=== PATIENT | male | born 1945 | race Caucasian/White ===

== ENCOUNTER 2018-04-23 07:42 | Emergency (ER) | payer OTHER ==
[~2018-04-23] VITALS: Ht 180.3 cm; Wt 96.6 kg
[~2018-04-23 07:42] MED LIST: AMLODIPINE BESYL5 MG PO; ASPIRIN CHEW81 MG PO; BACTRIM DS TAB1 EACH PO; FLOMAX0.4 MG PO; LOPRESSOR25 MG PO; NITROGLYCERIN; NORCO 10-325 T1 EACH PO; PROSCAR5 MG PO; PYRIDIUM100 MG PO; Z.0.ASPIR 8181 MG PO; Z.0.PLAVIX75 MG PO; ZESTRIL2.5 MG PO; ZOCOR20 MG PO
--- NOTE | 2018-04-23 07:45 | NUR ---
SLIT LAMP/SHAH LAMP/FLURO STRIP/SALINE FLUSH/ 4X4'S/TAPE AND TETRACAINE ALL AT BEDSIDE FOR MD.
--- OUTSIDE RECORDS SUMMARY | 2018-04-23 07:45 | XMS REPORT | Summary of Care ---
Author Author Nicolasa Samaniego M.A. Organization Unknown Address [facility] Phone Unavailable Care Team Providers Care Bar Back Name Role Phone Nicolasa Samaniego M.A. 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 Renal calculi (592.0, N20.0) Status: Active Nausea (787.02, R11.0) Status: Active Cramps of lower extremity (729.82, R25.2) Status: Active Chest pressure (786.59, R07.89) Status: Active Fatigue (780.79, R53.83) Status: Active Tachycardia (785.0, R00.0) Status: Active Chest pain (786.50, R07.9) Status: Active Palpitation (785.1, R00.2) Status: Active Influenza vaccine needed (V04.81, Z23) Status: Active Encounter for administrative examination (V68.9, Z02.9) Status: Active Enlarged prostate without lower urinary tract symptoms (luts) (600.00, N40.0) Status: Active Lumbar herniated disc (722.10, M51.26) Status: Active Counseling regarding advanced directives (V65.49, Z71.89) Status: Active Elbow pain, chronic, left (719.42, M25.522) Status: Active Cardiomyopathy (425.4, I42.9) Status: Active Noncompliance with treatment (V15.81, Z91.19) Status: Active Pain in left knee (719.46, M25.562) Status: Active Arteriosclerosis of coronary artery (414.00, I25.10) Status: Active Myocardial infarction (410.90, I21.9) Status: Active Hyperlipidemia (272.4, E78.5) Status: Active History of gross hematuria (V13.09, Z87.448) Status: Active Acute upper respiratory infection (465.9, J06.9) Status: Active CAD (coronary artery disease) (414.00, I25.10) Status: Active Essential (primary) hypertension (401.9, I10) Status: Active Medications Name Dates Details Ibuprofen CAPS PRN Active Aspirin 81 MG TABS TAKE 1 TABLET DAILY. * Refills: 0 Active Promethazine VC Plain 6.25-5 MG/5ML Oral Solution TAKE 5 ML EVERY 4 TO 6 HOURS NEEDED. * Quantity: 118 Refills: 2 YEH D.O.AMY * Start : 28-Jun-2017 Active Fluticasone Propionate 50 MCG/ACT Nasal Suspension USE 2 SPRAYS IN EACH NOSTRIL ONCE DAILY * Quantity: 1 Refills: 1 YEH D.OAMY Roth * Start : 28-Jun-2017 Active 16 GM Bottle Allergies and Adverse Reactions Name Dates Details Dilaudid TABS (Allergy) Reaction: Itching Status: Active Past Medical History Name Dates Details History of backache (V13.59, Z87.39) Status: Resolved History of Cavernoma (757.32, D18.01) Status: Resolved History of Colon Cancer (V10.05) Status: Resolved History of Nephrolithiasis (V13.01) Status: Resolved History of renal calculi (V13.01, Z87.442) Status: Resolved Procedures Procedure Dates Details History of Prostate Surgery Completed History of Colon Surgery Completed Immunization Name Dates Details Tdap on: 07-Aug-2010 Pneumo on: 07-Aug-2010 Fluzone INJ Lot #: [id number] on: 28-Feb-2015 Family History Name Dates Details Family history of essential hypertension (V17.49, Z82.49) Status: Active Social History Name Dates Details - Status: Name Dates Details Never smoker Vital Signs Date Test Result Details [id number] BP Systolic 142 mm[Hg] Status: Comments: Location: LUE; Position: Sitting BP Diastolic 81 mm[Hg] Status: Comments: Location: LUE; Position: Sitting Height 71 in Status: Weight 209 lb Status: Body Mass Index Calculated 29.15 kg/m2 Status: Body Surface Area Calculated 2.15 m2 Status: Temperature 97.7 f Status: Comments: Method: Temporal Respiration Rate 16 /min Status: Heart Rate 79 /min Status: Results Date Description Value Details Results not documented Plan of Care Name Dates Details Planned Observations Planned Goals not documented Planned Encounters Appointment; COLEMAN GAYLE M.D. On: 06-May-2018 9:00 Instructions Name Dates Details Instructions not documented Encounters Appointment; COLEMAN GAYLE M.D. Encounter Diagnosis: Problem not documented On: 16-Jul-2015 9:00 Appointment; COLEMAN GAYLE M.D. Encounter Diagnosis: Problem not documented On: 17-Jul-2015 12:40 Appointment; KEVIN PHAM NP Encounter Diagnosis: Problem not documented On: 11-Feb-2016 12:45 Appointment; COLEMAN GAYLE M.D. Encounter Diagnosis: Problem not documented On: 15-Jul-2016 12:20 Appointment; KEVIN PHAM NP Encounter Diagnosis: Problem not documented On: 31-Dec-2016 8:30 Appointment; [facility] Encounter Diagnosis: Problem not documented On: 07-Apr-2017 11:00 Appointment; [facility]ACKELINEMS, ECHO Encounter Diagnosis: Problem not documented On: 07-May-2017 8:00 Appointment; COLEMAN GAYLE M.D. Encounter Diagnosis: Problem not documented On: 07-May-2017 11:40 Appointment; AMY SALGUERO D.O. Encounter Diagnosis: Problem not documented On: 28-Jun-2017 13:15
[2018-04-23] MEDS ORDERED: ERYTHROMYCIN (OPTH) 3.5 GM OINT OP ONE (09:00)
[2018-04-23] MEDS ORDERED: TETRACAINE HCL 0.5% OPTH SOLN 4 ML BTL OP ONE (09:00)
[2018-04-23] MEDS ORDERED: CYCLOPENTOLATE HCL 1% OPTH SOLN 2ML BTL OP ONE (09:00)
[2018-04-23] MEDS ORDERED: FLUORESCEIN SOD(OPTH) 1 MG STRP OP ONE (09:00)
== END 2018-04-23 08:25 | disposition home or self-care (01) ==
LOC: FSED 07:42
DX: T15.01XA Foreign body in cornea, right eye, initial encounter (principal); H16.041 Marginal corneal ulcer, right eye
CPT/HCPCS: 99284

== ENCOUNTER 2018-12-16 16:27 | Emergency (ER) | payer MEDICARE, OTHER ==
[~2018-12-16] VITALS: Ht 180.3 cm; Wt 96.6 kg
--- OUTSIDE RECORDS SUMMARY | 2018-12-16 16:32 | XMS REPORT | Continuity of Care Document ---
Author Author [employer] Organization [employer] Address Unknown Phone Unavailable Care Team Providers Care Cook Mayonnaise Name Role Phone [facility] Yoyo Information Daily[employer] Unavailable Unavailable Problems Problem Status Onset Date Classification Date Reported Comments Source Chest pain Active 09/25/2014 Problem 04/23/2018 [facility] Medications Medication Details Route Status Patient Instructions Ordering Provider Order Date Source Finasteride (Proscar) 5 Mg Tablet, Mg Oral Daily Active 07/02/2013 [facility] Hydrocodone Bit/Acetaminophen ([place] 10-325 Tablet) 1 Each Tablet, 10 - 325 Mg Oral Every 4 Hours as needed Active 07/02/2013 [facility] Sulfamethoxazole/Trimethoprim (Bactrim Ds Tablet) 1 Each Tablet, Mg Oral Twice A Day Active 07/02/2013 [facility] Tamsulosin Hcl (Flomax*) 0.4 Mg Cap, 0.4 Mg Oral Twice A Day Active 07/02/2013 [facility] Aspirin (Aspir 81) 81 Mg Tablet.dr, 81 Mg Oral Daily Active 06/10/2012 [facility] Clopidogrel Bisulfate (Plavix) 75 Mg Tablet, 75 Mg Oral Daily Active 06/10/2012 [facility] Amlodipine Besylate 5 Mg Tablet Daily Active [facility] Aspirin (Aspirin Chew) 81 Mg Chew Daily Active [facility] Lisinopril (Zestril*) 2.5 Mg Tablet Daily Active [facility] Metoprolol Tartrate (Lopressor) 25 Mg Tab Twice A Day Active [facility] Phenazopyridine Hcl (Pyridium) 100 Mg Tablet Every 6 Hours as needed for Bladder Spasms Active [facility] Simvastatin (Zocor) 20 Mg Tablet Bedtime Active [facility] Allergies, Adverse Reactions, Alerts Substance Category Reaction Severity Reaction type Status Date Reported Comments Source Meperidine ITCHING Intermediate Allergy to Substance Active 09/25/2014 [facility] Immunizations No Data Provided for This Section Results No Data Provided for This Section Pathology Reports No Data Provided for This Section Diagnostic Reports No Data Provided for This Section Consultation Notes No Data Provided for This Section Discharge Summaries No Data Provided for This Section History and Physicals No Data Provided for This Section Vital Signs No Data Provided for This Section Encounters Location Location Details Encounter Type Encounter Number Reason For Visit Attending Provider ADM Date DC Date Status Source Departed Emergency Room [id number] FEROZ JULIEN MD 04/23/2018 04/23/2018 [facility] Procedures No Data Provided for This Section Assessment and Plan No Data Provided for This Section Plan of Care Plan of Care Date Source Discharge Date 04/23/18 8:25am Disposition HOME, SELF-CARE Condition at Discharge Stable Instructions/Education Provided Corneal Abrasion Prescriptions See Medication Section Referrals ARASH ROBERTS MD Address: [address] [place] [id number] [facility] Order Date: Call for an appointment 04/23/2018 [facility] Social History Social History Date Source Social History Problem Response Recorded Date/Time Onset Date Status Hx Psychiatric Problems No 09/26/2014 1:30am Not Applicable Not Applicable Hx Eating Disorder No 09/26/2014 1:30am Not Applicable Not Applicable Hx Substance Use Disorder No 09/26/2014 1:30am Not Applicable Not Applicable Hx Depression No 09/26/2014 1:30am Not Applicable Not Applicable Hx Alcohol Use No 09/26/2014 1:30am Not Applicable Not Applicable Hx Substance Use Treatment No 09/26/2014 1:30am Not Applicable Not Applicable Hx Physical Abuse No 09/26/2014 1:30am Not Applicable Not Applicable 04/23/2018 [facility] Family History No Data Provided for This Section Advance Directives Order Name Results Value Date Source Advance Directives Advance Directives Directive Response Recorded Date/Time Does the patient have an advance directive? Yes 09/26/14 1:30am If yes, is advance directive on file with [facility]? No 09/26/14 1:30am If not on file with [facility] will patient provide a copy? Yes 09/26/14 1:30am 04/23/2018 [facility] Functional Status No Data Provided for This Section
--- OUTSIDE RECORDS SUMMARY | 2018-12-16 16:32 | XMS REPORT | Summary of Care ---
Author Author Jun Giraldo R.N. Organization Unknown Address [facility] Phone Unavailable Care Team Providers Care Pattern Drafter Name Role Phone Jun Giraldo R.N. Unavailable Unavailable YEPradeep D.OIra, ELO-JOHNNY Unavailable Unavailable YEH DO [facility], ELO-JOHNNY Unavailable Unavailable ARMANDO Johnson, ARASH Unavailable Unavailable Irwin CHUA, Jac Unavailable Unavailable Unavailable Unavailable Functional Status Name [...] Active Chest pain (786.50, R07.9) Status: Active Influenza vaccine needed (V04.81, Z23) Status: Active Encounter for administrative examination (V68.9, Z02.9) Status: Active Lumbar herniated disc (722.10, M51.26) Status: Active Elbow pain, chronic, left (719.42, M25.522) Status: Active Cardiomyopathy (425.4, I42.9) Status: Active Noncompliance with treatment (V15.81, Z91.19) Status: Active Pain in left knee (719.46, M25.562) Status: Active Myocardial infarction (410.90, I21.9) Status: Active History of gross hematuria (V13.09, Z87.448) Status: Active Acute upper respiratory infection (465.9, J06.9) Status: Active Counseling regarding advanced directives (V65.49, Z71.89) Status: Active Arteriosclerosis of coronary artery (414.00, I25.10) Status: Active Palpitation (785.1, R00.2) Status: Active Hyperlipidemia (272.4, E78.5) Status: Active CAD (coronary artery disease) (414.00, I25.10) Status: Active Enlarged prostate without lower urinary tract symptoms (luts) (600.00, N40.0) Status: Active Essential (primary) hypertension (401.9, I10) Status: Active Colon cancer screening (V76.51, Z12.11) Status: Active Skin lesion of face (709.9, L98.9) Status: Active Medications Name Dates Details Simvastatin 20 MG Oral Tablet TAKE 1 TABLET BY MOUTH AT BEDTIME Quantity: 30 YEH D.O., ELO-JOHNNY * Start : 28-Sep-2014 Active Allergies and Adverse Reactions Name Dates Details Dilaudid TABS (Allergy) Reaction: Itching Status: Active Past Medical History Name Dates Details History of backache (V13.59, Z87.39) Status: Resolved History of Cavernoma (228.00, D18.00) Status: Resolved History of Colon Cancer (V10.05) Status: Resolved History of Nephrolithiasis (V13.01) Status: Resolved History of renal calculi (V13.01, Z87.442) Status: Resolved Procedures Procedure Dates Details History of Prostate Surgery Completed History of Colon Surgery Completed Immunization Name Dates Details Tdap on: 07-Aug-2010 Pneumo on: 07-Aug-2010 Fluzone INJ Lot #: [id number] on: 28-Feb-2015 Family History Name Dates Details Family history of essential hypertension (V17.49, Z82.49) Status: Active Social History Name Dates Details - Status: Name Dates Details Never smoker Vital Signs Date Test Result Details [id number] Physical Findings 1 Status: Comments: PHQ-9 Adult Depression Screening Results Date Description Value Details 05-Oct-20189:29 [QH] LIPID PANEL WITH REFLEX TO DIRECT LDL CHOLESTEROL, TOTAL 202 mg/dl (Above high threshold) Range: <200 HDL CHOLESTEROL 39 mg/dl (Below low threshold) Range: >40 TRIGLYCERIDES 132 mg/dl (Normal) Range: <150 LDL-CHOLESTEROL 137 {MG/DL__CAL} (Above high threshold) Comments: Reference range: <100 Desirable range <100 mg/dL for primary prevention; <70 mg/dL for patients with CHD or diabetic patients with > or=2 CHD risk factors. LDL-C is now calculated using the El calculation, which is a validated novel method providing better accuracy than the Friedewald equation in the estimation of LDL-C. Jaquan RESTREPO et al. LEANNE. 2013;310(19): 3268-8442 (http:/ /education.Artsy/faq/TWT579) CHOL/HDLC RATIO 5.2 {CALC} (Above high threshold) Range: <5.0 NON HDL CHOLESTEROL 163 {MG/DL__CAL} (Above high threshold) Range: <130 Comments: For patients with diabetes plus 1 major ASCVD risk factor, treating to a non-HDL-C goal of <100 mg/dL (LDL-C of <70 mg/dL) is considered a therapeutic option. 05-Oct-20189:29 [[facility]] CMP W/EGFR GLUCOSE 102 mg/dl (Above high threshold) Range: 65-99 Comments: Fasting reference interval For someone without known diabetes, a glucose valuebetween 100 and 125 mg/dL is consistent withprediabetes and should be confirmed with afollow-up test. UREA NITROGEN (BUN) 16 mg/dl (Normal) Range: 7-25 CREATININE 1.23 mg/dl (Above high threshold) Range: 0.70-1.18 Comments: For patients >49 years of age, the reference limitfor Creatinine is approximately 13% higher for peopleidentified as -Mexican. eGFR NON- 57 {ML/MIN/1.7} (Below low threshold) Range: > OR=60 eGFR 67 {ML/MIN/1.7} (Normal) Range: > OR=60 BUN/CREATININE RATIO 13 {CALC} (Normal) Range: 6-22 SODIUM 141 mmol/L (Normal) Range: 135-146 POTASSIUM 4.8 mmol/L (Normal) Range: 3.5-5.3 CHLORIDE 108 mmol/L (Normal) Range: 98-110 CARBON DIOXIDE 27 mmol/L (Normal) Range: 20-32 CALCIUM 9.1 mg/dl (Normal) Range: 8.6-10.3 PROTEIN, TOTAL 6.1 g/dl (Normal) Range: 6.1-8.1 ALBUMIN 4.0 g/dl (Normal) Range: 3.6-5.1 GLOBULIN 2.1 {G/DL__CALC} (Normal) Range: 1.9-3.7 ALBUMIN/GLOBULIN RATIO 1.9 {CALC} (Normal) Range: 1.0-2.5 BILIRUBIN, TOTAL 0.4 mg/dl (Normal) Range: 0.2-1.2 ALKALINE PHSPHATASE 55 u/l (Normal) Range: 40-115 AST 17 u/l (Normal) Range: 10-35 ALT 14 u/l (Normal) Range: 9-46 :29 [QL] CBC (INCLUDES DIFF/PLT) WHITE BLOOD CELL COUNT 5.0 {Thousand/u} (Normal) Range: 3.8-10.8 RED BLOOD CELL COUNT 4.93 {Million/uL} (Normal) Range: 4.20-5.80 HEMAGLOBIN 14.9 g/dl (Normal) Range: 13.2-17.1 HEMATOCRIT 44.2 % (Normal) Range: 38.5-50.0 MCV 89.7 fL (Normal) Range: 80.0-100.0 MCH 30.2 pg (Normal) Range: 27.0-33.0 MCHC 33.7 g/dl (Normal) Range: 32.0-36.0 RDW 14.9 % (Normal) Range: 11.0-15.0 PLATELET COUNT 260 {Thousand/u} (Normal) Range: 140-400 MPV 10.3 fL (Normal) Range: 7.5-12.5 ABSOLUTE NEUTROPHILS 3200 {cells/uL} (Normal) Range: 0577-7093 ABSOLUTE LYMPHOCYTES 1145 {cells/uL} (Normal) Range: 850-3900 ABSOLUTE MONOCYTES 415 {cells/uL} (Normal) Range: 200-950 ABSOLUTE EOSINOPHILS 170 {cells/uL} (Normal) Range: 15-500 ABSOLUTE BASOPHILS 70 {cells/uL} (Normal) Range: 0-200 NEUTROPHILS 64 % (Normal) LYMPHOCYTES 22.9 % (Normal) MONOCYTES 8.3 % (Normal) EOSINOPHILS 3.4 % (Normal) BASOPHILS 1.4 % (Normal) :29 [QL] TSH, 3RD GENERATION W/REFLEX TO FT4 TSH, 3RD GENERATION W/REFLEX TO FT4 4.15 {MIU/L} (Normal) Range: 0.40-4.50 05-Oct-20189:29 [QL[facility]] PSA (FREE AND TOTAL) Comments: REPORT COMMENT:FASTING:YESCOLLECTION KIT GIVEN TO PATIENT. PATIENT ADVISED TO RETURN. TOTAL PSA 3.3 ng/ml (Normal) Range: < OR=4.0 FREE PSA 0.6 ng/ml (Normal) % FREE PSA 18 {%__CALC} (Below low threshold) Range: >25 Comments: PSA(ng/mL) Free PSA(%) Estimated(x) Probability of Cancer(as%)0-2.5 (*) Approx. 12.6-4.0(1) 0-27(2) 24(3)4.1-10(4) 0- 10 56 11-15 28 16-20 20 21-25 16 >or=26 8>10(+) N/A >50 References:(1)Nick et al.:Urology 60: 469-474 (2001) (2)Nick et al.:J.Urol 168: 922-925 (2001) Free PSA(%) Sensitivity(%) Specificity(%) < or=25 85 19 < or=30 93 9 (3)Catalona et al.:LEANNE 277: 9666-6232 (1996) (4)Catalona et al.:LEANNE 279: 0989-8532 (1997) (x)These estimates vary with age, ethnicity, family history and FAHEEM results.(*)The diagnostic usefulness of % Free PSA has not been established in patients with total PSA below 2.6 ng/mL(+)In men with PSA above 10 ng/mL, prostate cancer risk is determined by total PSA alone. The Total PSA value from this assay system is standardized against the equimolar PSA standard. The test result will be approximately 20% higher when compared to the WHO- standardized Total PSA (Siemens assay). Comparison of serial PSA results should be interpreted with this fact in mind. PSA was performed using the Roger CoulterImmunoassay method. Values obtained from differentassay methods cannot be used interchangeably. PSAlevels, regardless of value, should not be interpretedas absolute evidence of the presence or absence ofdisease. [id number]-[id number]:00 [Q] FECAL GLOBIN BY IMMUNOCHEMISTRY FECAL GLOBIN BY IMMUNOCHEMISTRY Comments: FECAL GLOBIN BY IMMUNOCHEMISTRY MICRO NUMBER: [id number] TEST STATUS: FINAL SPECIMEN SOURCE: INSURE () FOBT TEST CARD SPECIMEN QUALITY: ADEQUATE RESULT: Not DetectedNO COLLECTION DATE RECEIVED. WE HAVE USEDTHE DATE THE SPECIMEN [facility] COLLECTION [facility]. IF THISIS INCORRECT, PLEASE CONTACT CLIENT SERVICES.PHONE NUMBER: [phone] Plan of Care Name Dates Details Planned Observations Planned Goals not documented Planned Encounters Appointment; AMY SALGUERO D.O. On: 30-Dec-2018 10:30 Appointment; JAC DAVIS M.D. On: 09-May-2019 14:00 Interventions Provided Discussion/Summary* Guideline Used: * Other: Returning a missed call * [place] * Patient returning a missed call from [facility]. Warm transfer call to [facility]. * No new signs or symptoms from patient at this time. * Recommended Disposition: Call back with any further questions or concerns. * Intended Caller Action: * Other: Returning a missed call * Additional Information: * Patient verbalizes understanding of the call and agrees to disposition at this time. Instructions Name Dates Details Instructions not documented Encounters Appointment; KEVIN PHAM NP Encounter Diagnosis: Problem not documented On: 31-Dec-2016 8:30 Appointment; [facility], ECHO Encounter Diagnosis: Problem not documented On: 07-Apr-2017 11:00 Appointment; [facility], ECHO Encounter Diagnosis: Problem not documented On: 07-May-2017 8:00 Appointment; JAC DAVIS M.D. Encounter Diagnosis: Problem not documented On: 07-May-2017 11:40 Appointment; AMY SALGUERO D.O. Encounter Diagnosis: Problem not documented On: 28-Jun-2017 13:15 Appointment; JAC DAVIS M.D. Encounter Diagnosis: Problem not documented On: 06-May-2018 9:00 Appointment; JAC DAVIS M.D. Encounter Diagnosis: Problem not documented On: 10-May-2018 13:20 Appointment; AMY SALGUERO D.O. Encounter Diagnosis: Problem not documented On: 07-Sep-2018 14:30
[2018-12-16] MEDS ORDERED: TETRACAINE HCL 0.5% OPTH SOLN 4 ML BTL OP ONE (17:30)
[2018-12-16] MEDS ORDERED: FLUORESCEIN SOD(OPTH) 1 MG STRP OP ONE (17:30)
== END 2018-12-16 17:00 | disposition home or self-care (01) ==
LOC: FSED 16:27
DX: H57.12 Ocular pain, left eye (principal); H16.002 Unspecified corneal ulcer, left eye
CPT/HCPCS: 99284

== ENCOUNTER 2019-01-23 18:21 | Emergency (ER) | payer MEDICARE ==
[~2019-01-23] VITALS: Ht 180.3 cm; Wt 95.3 kg
--- OUTSIDE RECORDS SUMMARY | 2019-01-23 18:25 | XMS REPORT | Summary of Care ---
Author Author Elder Nunez Unknown Address Unknown Phone Unavailable Care Team Providers Care Tooth Cutter Clutch Name Role Phone NOEMY Brownlee, AMY Unavailable Unavailable AMY HARRIS Unavailable Unavailable ARMANDO Johnson, ARASH Unavailable Unavailable [...] lesion of face (709.9, L98.9) Status: Active Encounter for vision screening (V72.0, Z01.00) Status: Active Medications Name Dates Details Simvastatin 20 MG Oral Tablet TAKE 1 TABLET BY MOUTH AT BEDTIME Quantity: 30 AMY SALGUERO D.O. * Start : 28-Sep-2014 Active Allergies and [...] Pneumo on: 07-Aug-2010 Fluzone INJ Lot #: [id number] on: 28-Feb-2015 Family History Name Dates Details Family history of essential hypertension (V17.49, Z82.49) Status: Active Social History Name Dates Details - Status: Name Dates Details Never smoker Vital Signs Date Test Result Details No Known Vitals to report Results Date Description Value Details Results not documented Plan of Care Name Dates Details Planned Observations Planned Goals not documented Planned Encounters Appointment; AMY SALGUERO D.O. On: 24-Jan-2019 12:00 Appointment; COLEMAN GAYLE M.D. On: 09-May-2019 14:00 Instructions Name Dates Details Instructions not documented [facility]counters [facility] Encounter Diagnosis: Problem not documented On: 07-Apr-2017 11:00 Appointment; [facility] Encounter Diagnosis: Problem not documented On: 07-May-2017 8:00 Appointment; COLEMAN GAYLE M.D. Encounter Diagnosis: Problem not documented On: 07-May-2017 11:40 Appointment; AMY SALGUERO D.O. Encounter Diagnosis: Problem not documented On: 28-Jun-2017 13:15 Appointment; COLEMAN GAYLE M.D. Encounter Diagnosis: Problem not documented On: 06-May-2018 9:00 Appointment; COLEMAN GAYLE M.D. Encounter Diagnosis: Problem not documented On: 10-May-2018 13:20 Appointment; AMY SALGUERO D.O. Encounter Diagnosis: Problem not documented On: 07-Sep-2018 14:30
--- OUTSIDE RECORDS SUMMARY | 2019-01-23 18:25 | XMS REPORT | Continuity of Care Document ---
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 Role Phone [facility] [place] Information [employer] Unavailable Unavailable Problems Problem Status Onset Date Classification Date Reported Comments Source Chest pain Active 09/25/2014 Problem 12/16/2018 [facility] Medications Medication Details Route Status Patient Instructions Ordering Provider Order Date Source Finasteride (Proscar) 5 Mg Tablet, Mg Oral Daily Active 07/02/2013 [facility] Hydrocodone Bit/Acetaminophen ([place] 10-325 Tablet) 1 Each Tablet, 10 - 325 Mg Oral Every 4 Hours as needed Active 07/02/2013 [facility] Sulfamethoxazole/Trimethoprim (Bactrim Ds Tablet) 1 Each Tablet, Mg Oral Twice A Day Active 07/02/2013 [facility] Tamsulosin Hcl (Flomax*) 0.4 Mg Cap, 0.4 Mg Oral Twice A Day Active 07/02/2013 [facility] Aspirin (Aspir 81) 81 Mg Tablet.dr, 81 Mg Oral Daily Active 06/10/2012 [facility] Clopidogrel Bisulfate (Plavix) 75 Mg Tablet, 75 Mg Oral Daily Active 06/10/2012 [facility] Amlodipine Besylate 5 Mg Tablet Daily Active [facility] Aspirin (Aspirin Chew) 81 Mg Chew Daily Active [facility] Lisinopril (Zestril*) 2.5 Mg Tablet Daily Active [facility] Metoprolol Tartrate (Lopressor) 25 Mg Tab Twice A Day Active [facility] Phenazopyridine Hcl (Pyridium) 100 Mg Tablet Every 6 Hours as needed for Bladder Spasms Active [facility] Simvastatin (Zocor) 20 Mg Tablet Bedtime Active [facility] Allergies, Adverse Reactions, Alerts Substance Category Reaction Severity Reaction type Status Date Reported Comments Source Meperidine ITCHING Intermediate Allergy to Substance Active 09/25/2014 [facility] Immunizations No Data Provided for This [...] DC Date Status Source Departed Emergency Room [id number] FEROZ JULIEN MD 04/23/2018 04/23/2018 [facility] Registered Emergency Room [id number] GINNA POWELL 12/16/2018 [facility] Procedures No Data Provided for This Section Assessment and Plan No Data Provided for This Section Plan of Care Plan of Care Date Source Discharge Date 12/16/18 5:00pm Disposition HOME, SELF-CARE Condition at Discharge Stable Instructions/Education Provided Corneal Abrasion Eye Pain Forms Provided Work/School Excuse Prescriptions See Medication Section Referrals DR VINNIE MOSLEY Order Date: Call for an appointment Address: [address] [place] [id number] RUBÉN SOTOMAYOR MD Order Date: Call for an appointment Address: [address] [place] [id number] 12/16/2018 [facility] Discharge Date 04/23/18 8:25am Disposition HOME, SELF-CARE Condition at Discharge Stable Instructions/Education Provided Corneal Abrasion Prescriptions See Medication Section Referrals ARASH ROBERTS MD Address: [address] [place], [place] [id number] [facility] Order Date: Call for an appointment 04/23/2018 [facility] Social History Social History Date Source [...] No 09/26/2014 1:30am Not Applicable Not Applicable 12/16/2018 [facility] Family History No Data Provided for This Section Advance Directives Order Name Results Value Date Source Advance Directives Advance Directives Directive Response Recorded Date/Time Does the patient have an advance directive? No 04/23/18 11:35am If yes, is advance directive on file with [facility]? No 12/16/18 5:38pm If not on file with [facility] will patient provide a copy? No 12/16/18 5:38pm Do you have a Directive to Physician? No 12/16/18 5:38pm Do you have a Medical Power of School Psychologist? No 12/16/18 5:38pm Do you have an out of hospital Do Not Resuscitate Order? No 12/16/18 5:38pm Do you have any special needs we should be aware of? No 12/16/18 5:38pm Do you have a support person here with you today? No 12/16/18 5:38pm Did patient receive Notice of Privacy Practices? Yes 12/16/18 5:38pm Did patient receive patient rights and responsibilities? Yes 12/16/18 5:38pm 12/16/2018 [facility] Advance Directives Advance Directives Directive Response Recorded Date/Time Does the patient have an advance directive? Yes 09/26/14 1:30am If yes, is advance directive on file with [facility]? No 09/26/14 1:30am If not on file with [facility] will patient provide a copy? Yes 09/26/14 1:30am 04/23/2018 [facility] Functional Status No Data Provided for This Section
[2019-01-23] MEDS ORDERED: FLUORESCEIN SOD(OPTH) 1 MG STRP ONE (19:13)
[2019-01-23 19:46] VITALS: BP 158/84
== END 2019-01-23 19:49 | disposition home or self-care (01) ==
LOC: FSED 18:21
DX: H11.32 Conjunctival hemorrhage, left eye (principal); S05.02XA Injury of conjunctiva and corneal abrasion without foreign body, left eye, initial encounter; Z88.8 Allergy status to other drugs, medicaments and biological substances
CPT/HCPCS: 99283

== ENCOUNTER 2021-08-10 14:55 | Emergency (ER) | payer MEDICARE, OTHER ==
[~2021-08-10] VITALS: Ht 180.3 cm; Wt 99.8 kg
[2021-08-10] MEDS ORDERED: KETOROLAC TROME10 MG PO (16:35)
== END 2021-08-10 17:00 | disposition home or self-care (01) ==
LOC: FSED 15:25
DX: S60.221A Contusion of right hand, initial encounter (principal); W23.1XXA Caught, crushed, jammed, or pinched between stationary objects, initial encounter; Y92.89 Other specified places as the place of occurrence of the external cause; I10 Essential (primary) hypertension; E03.9 Hypothyroidism, unspecified; I25.2 Old myocardial infarction; Z95.5 Presence of coronary angioplasty implant and graft; Z85.038 Personal history of other malignant neoplasm of large intestine
CPT/HCPCS: 99283

== ENCOUNTER 2021-09-27 17:40 | Emergency (ER) | payer MEDICARE ==
[~2021-09-27] VITALS: Ht 180.3 cm; Wt 98.4 kg
[~2021-09-27 17:40] MED LIST changes: +KETOROLAC TROME10 MG PO
[2021-09-27] MEDS ORDERED: ACETAMINOPHEN 325 MG TAB PO ONE (19:45)
[2021-09-27] MEDS ORDERED: BEBTELOVIMAB 175 MG INJ IV ONE (19:45)
== END 2021-09-27 20:52 | disposition home or self-care (01) ==
LOC: FSED 18:09
DX: U07.1 COVID-19 (principal); I10 Essential (primary) hypertension; I25.2 Old myocardial infarction; E03.9 Hypothyroidism, unspecified; I25.10 Atherosclerotic heart disease of native coronary artery without angina pectoris; Z88.6 Allergy status to analgesic agent; Z79.82 Long term (current) use of aspirin; Z79.899 Other long term (current) drug therapy; Z95.5 Presence of coronary angioplasty implant and graft; Z87.891 Personal history of nicotine dependence
CPT/HCPCS: 99283; U0002

== ENCOUNTER 2023-12-07 06:25 | Inpatient (IN) | payer MEDICARE ==
[~2023-12-07] VITALS: Ht 180.3 cm; Wt 95.3 kg
[2023-12-07 06:49] LABS: BASOPHILS # (AUTO) 0.1 (0.0-0.1); BASOPHILS % 0.8 % (0.0-1.0); EOSINOPHILS # (AUTO) 0.2 (0.0-0.4); HEMOGLOBIN 15.2 g/dL (14.0-18.0); LYMPHOCYTES # (AUTO) 0.8 (1.0-3.2); LYMPHOCYTES % 7.3 % (18.0-39.1); MEAN CORPUSCULAR HEMOGLOBIN 30.3 pg (28-32); MEAN CORPUSCULAR HGB CONC 33.8 g/dL (31-35); MEAN CORPUSCULAR VOLUME 89.8 fL (81-99); MONOCYTES # (AUTO) 0.6 (0.2-0.8); NEUTROPHILS # (AUTO) 8.9 (2.1-6.9); NEUTROPHILS % 83.4 % (38.7-80.0); PLATELET COUNT 243 x10e3/uL (140-360); RED BLOOD COUNT 5.01 x10e6/uL (4.3-5.7); RED CELL DISTRIBUTION WIDTH 15.1 % (11.7-14.4); WHITE BLOOD COUNT 10.64 x10e3/uL (4.8-10.8)
[2023-12-07] MEDS: SODIUM CHLORIDE 0.9% 1000ML 1,000 ML IV STA (06:51)
[2023-12-07] MEDS: ONDANSETRON HCL INJ 2MG/ML 2ML 2 MG/ML VIAL IV STA (06:52)
[2023-12-07 06:56] LABS: INR 0.97; PROTHROMBIN TIME 13.6 seconds (11.9-14.5)
[2023-12-07 06:57] LABS: PARTIAL THROMBOPLASTIN TIME 28.7 seconds (23.8-35.5)
[2023-12-07 07:05] LABS: ALBUMIN 3.9 g/dL (3.5-5.0); ALBUMIN/GLOBULIN RATIO 1.4 (0.8-2.0); ANION GAP 14.2 mmol/L (8-16); BILIRUBIN,TOTAL 0.3 mg/dL (0.2-1.2); CALCIUM 9.3 mg/dL (8.4-10.2); CREATININE, SERUM 1.22 mg/dL (0.72-1.25); MAGNESIUM 2.1 MG/DL (1.3-2.1); POTASSIUM 4.2 mmol/L (3.5-5.1); TOTAL PROTEIN 6.6 g/dL (6.5-8.1)
[2023-12-07 07:10] LABS: TROPONIN I 0.016 ng/mL (0-0.300)
[2023-12-07] MEDS ORDERED: IOPAMIDOL 370 MG/ML 100 ML INFUS..BTL INJ ONE (07:16)
[2023-12-07 07:45] VITALS: TEMP 97.8
[2023-12-07 08:20] LABS: BACTERIA,URINE FEW /HPF; BILIRUBIN,URINE NEGATIVE (NEGATIVE); CLARITY,URINE CLEAR (CLEAR); COLOR,URINE YELLOW (YELLOW); EPITHELIAL CELLS,URINE FEW /LPF; GLUCOSE, URINE NEGATIVE (NEGATIVE); KETONES,URINE NEGATIVE (NEGATIVE); LEUKOCYTE ESTERASE ,URINE NEGATIVE (NEGATIVE); NITRITE,URINE NEGATIVE (NEGATIVE); PH,URINE 6 (5 - 7); PROTEIN,URINE DIPSTICK NEGATIVE (NEGATIVE); RBC,URINE 0-5 /HPF (0-5); URINE UROBILINOGEN 0.2 mg/dL (0.2 - 1)
[2023-12-07] MEDS ORDERED: PROMETHAZINE 25MG/SOD CHL 0.9% 50 ML IV ONE (09:32)
[2023-12-07] MEDS: Morphine 4mg INJECTION 4 MG/ML INJ IV ONE (10:41)
[2023-12-07] MEDS: SODIUM CHLORIDE 0.9% 1000ML 1,000 ML IV SCH (10:44)
[2023-12-07] MEDS: BENZOCAINE/TETRACAINE/BUTAMBEN AERO SPRAY 56 GM CAN TOP ONE (10:45)
[2023-12-07 13:34] VITALS: PULSE 68; RESP 19
[2023-12-07] MEDS: ONDANSETRON HCL INJ 2MG/ML 2ML 2 MG/ML VIAL IV PRN (13:59)
[2023-12-07] MEDS: Morphine 4mg INJECTION 4 MG/ML INJ IV PRN (13:59)
[2023-12-07 14:17] VITALS: BP 149/71; PULSE 77; RESP 18; TEMP 98.3; O2SAT 97
[2023-12-07 15:07] LABS: CREATINE KINASE 60 IU/L (30-200)
[2023-12-07 15:14] LABS: TROPONIN I < 0.001 ng/mL (0-0.300)
[2023-12-07 15:53] VITALS: BP 149/71; PULSE 77; RESP 18; TEMP 98.3; O2SAT 97
[2023-12-07 20:00] VITALS: BP 175/73; PULSE 80; RESP 18; TEMP 98.1; O2SAT 98
[2023-12-07] MEDS: PROMETHAZINE 12.5MG/ NACL 0.9% 12.5 MG/50 ML BAG IV PRN (20:00)
[2023-12-07] MEDS: DIPHENHYDRAMINE HCL INJ 50 MG/ML VIAL IV PRN (20:51)
[2023-12-08] VITALS (8 sets, daily range): BP systolic 119–164; BP diastolic 69–95; PULSE 61–84; RESP 18–20; TEMP 97.6–99; O2SAT 96–100
[2023-12-08 06:08] LABS: BASOPHILS # (AUTO) 0.1 (0.0-0.1); BASOPHILS % 0.7 % (0.0-1.0); EOSINOPHILS # (AUTO) 0.1 (0.0-0.4); HEMATOCRIT 44.4 % (38.2-49.6); HEMOGLOBIN 14.5 g/dL (14.0-18.0); LYMPHOCYTES # (AUTO) 0.9 (1.0-3.2); LYMPHOCYTES % 8.9 % (18.0-39.1); MEAN CORPUSCULAR HEMOGLOBIN 30.1 pg (28-32); MEAN CORPUSCULAR HGB CONC 32.7 g/dL (31-35); MEAN CORPUSCULAR VOLUME 92.1 fL (81-99); MONOCYTES # (AUTO) 0.8 (0.2-0.8); MONOCYTES % 8.5 % (4.4-11.3); NEUTROPHILS # (AUTO) 7.7 (2.1-6.9); NEUTROPHILS % 80.6 % (38.7-80.0); PLATELET COUNT 234 x10e3/uL (140-360); RED BLOOD COUNT 4.82 x10e6/uL (4.3-5.7); RED CELL DISTRIBUTION WIDTH 15.7 % (11.7-14.4); WHITE BLOOD COUNT 9.55 x10e3/uL (4.8-10.8)
[2023-12-08 06:46] LABS: TROPONIN I 0.001 ng/mL (0-0.300)
[2023-12-08 07:20] LABS: ALBUMIN 3.5 g/dL (3.5-5.0); ALBUMIN/GLOBULIN RATIO 1.3 (0.8-2.0); ANION GAP 15.7 mmol/L (8-16); BILIRUBIN,TOTAL 0.5 mg/dL (0.2-1.2); CALCIUM 8.5 mg/dL (8.4-10.2); CREATININE, SERUM 1.15 mg/dL (0.72-1.25); POTASSIUM 4.7 mmol/L (3.5-5.1); TOTAL PROTEIN 6.2 g/dL (6.5-8.1)
[2023-12-08] MEDS: BISACODYL 10 MG SUPP PR ONE (11:42)
[2023-12-08 14:28] LABS: CREATINE KINASE 39 IU/L (30-200)
[2023-12-08 14:40] LABS: TROPONIN I < 0.001 ng/mL (0-0.300)
[2023-12-09] VITALS: BP 157/79; PULSE 86; RESP 18; TEMP 97.9; O2SAT 100
[2023-12-09 04:00] VITALS: BP 150/67; PULSE 84; RESP 20; TEMP 97.7; O2SAT 97
[2023-12-09 08:17] VITALS: BP 159/92; PULSE 78; RESP 20; TEMP 98.4; O2SAT 97
[2023-12-09] MEDS: CHLORASEPTIC SPRAY 177 ML BTL MM PRN (09:35)
[2023-12-09 11:39] VITALS: BP 144/86; PULSE 91; RESP 19; TEMP 98.2; O2SAT 98
[2023-12-09] MEDS: BISACODYL 10 MG SUPP PR ONE (15:53)
[2023-12-09 17:36] VITALS: BP 185/98; PULSE 77; RESP 19; TEMP 98.1; O2SAT 97
[2023-12-09 20:00] VITALS: BP 157/86; PULSE 85; RESP 18; TEMP 98.5; O2SAT 95
[2023-12-10] VITALS: BP 152/70; PULSE 79; RESP 20; TEMP 98.6; O2SAT 100
[2023-12-10 04:00] VITALS: BP 152/75; PULSE 75; RESP 18; TEMP 98.4; O2SAT 100
[2023-12-10 08:00] VITALS: BP 150/79; PULSE 75; RESP 18; TEMP 98; O2SAT 96
[2023-12-10] MEDS: BISACODYL 10 MG SUPP PR ONE (08:58)
[2023-12-10 09:00] VITALS: BP 150/79; PULSE 75; RESP 18; TEMP 98; O2SAT 96
== END 2023-12-10 13:06 | disposition home or self-care (01) | DRG 389 ==
LOC: ER 06:31 → ERHOLD 09:37 → MED/SURG2 13:53
PROVIDERS: ADMIT Internal Medicine; ATTEND Internal Medicine
DX: K56.609 Unspecified intestinal obstruction, unspecified as to partial versus complete obstruction (principal); N13.0 Hydronephrosis with ureteropelvic junction obstruction; N39.0 Urinary tract infection, site not specified; I10 Essential (primary) hypertension; I25.10 Atherosclerotic heart disease of native coronary artery without angina pectoris; Z95.5 Presence of coronary angioplasty implant and graft; R73.9 Hyperglycemia, unspecified; I25.2 Old myocardial infarction; E03.9 Hypothyroidism, unspecified; Z85.038 Personal history of other malignant neoplasm of large intestine; Z88.5 Allergy status to narcotic agent; Z79.1 Long term (current) use of non-steroidal anti-inflammatories (NSAID)
CPT/HCPCS: 36415; 71045; 74018; 74022; 74177; 80053; 81001; 82550; 83690; 83735; 84484; 85025; 85610; 85730; 93005; 94760; 99284; J1200; J2270; J2405; J2470; J2550; J7030; Q9967; U0002